=== PATIENT | female | born 1980 | race Caucasian/White ===

== ENCOUNTER → 2016-07-18 | Outpatient (CLI) | payer BC ==
[~2016-07-18] MED LIST: HYDR-4246 PO; IBUP-1547 PO; IRON1CAP3 PO; PREN1TAB77 PO
--- NOTE | 2016-07-18 12:18 | DI ---
Indication: ITS.REASON: O26.859 Spotting complicating , unspecified trimester PROCEDURE: US OB <14 WKS WITH TRANSVAG: Encounter: Initial Age by LMP is 9 weeks and 1 days. This correlates to an MILLIE of February 19, 2017. Comparison: None PROCEDURE: US OB <14 WKS WITH TRANSVAG: Technique: Transabdominal and transvaginal pelvic sonographic imaging was performed. Findings: Imaging demonstrates an intrauterine gestation. A normal appearing yolk sac is identified. No pole or embryo identified. Both ovaries were identified and appear normal. The left measures 2.7 x 3 x 2.3 cm, and the right 2.1 x 1.5 x 1.5 cm. No abnormal adnexal mass. No free fluid. Probable corpus luteum on the left. biometry: Mean sac diameter 1.78 cm: 6 weeks and 5 days. Impression: Abnormal appearing intrauterine gestation with a well-defined yolk sac but no discernible pole. Given the mean sac diameter of 1.8 cm this is suspicious for, but not diagnostic of failure. Differential considerations include spontaneous , anembryonic /blighted ovum or less likely early normal . Follow-up ultrasound exam at or after 11 days from today would be definitive for evaluation of a failed . Recommend serial beta hCG measurements and clinical follow-up. .
== END ==
LOC: IMA 10:19
PROVIDERS: ATTEND Family Medicine
DX: O26.859 Spotting complicating pregnancy, unspecified trimester (principal); R93.8 Abnormal findings on diagnostic imaging of other specified body structures
CPT/HCPCS: 36415; 84702; 86850; 86900; 86901

== ENCOUNTER → 2016-07-20 | Outpatient (CLI) | payer BC | LOC: LAB 09:36 | PROVIDERS: ATTEND Family Medicine | DX: O26.859 Spotting complicating pregnancy, unspecified trimester (principal) | CPT/HCPCS: 36415; 84702 ==

== ENCOUNTER 2017-06-08 07:43 | Inpatient (IN) ==
[2017-06-08] MEDS ORDERED: CITRIC ACID/SODIUM CITRATE 30ml PO ONE (08:23)
[2017-06-08] MEDS ORDERED: CEFAZOLIN PREMIX (MC ONLY) 2 GM/50 ML BAG IV ONE (08:23)
[2017-06-08] MEDS ORDERED: FAMOTIDINE PB 20 MG/50 ML BAG IV ONE (08:23)
[2017-06-08 09:03] VITALS: BMI 24.5
[2017-06-08] MEDS: LR 1,000 ML IV SCH ×2 (09:42→10:55)
[2017-06-08] MEDS ORDERED: OXYTOCIN BOLUS BAG 30 UNIT/500 ML ML IV SCH (10:20)
[2017-06-08] MEDS ORDERED: CALCIUM CARBONATE Chewable 500mg TABLET PO PRN (10:58)
[2017-06-08] MEDS ORDERED: ONDANSETRON 4 MG/2 ML INJECTION IVP PRN ×2 (10:58→11:15)
[2017-06-08] MEDS ORDERED: DiphenhydrAMINE 25 MG CAPSULE PO PRN (10:58)
[2017-06-08] MEDS ORDERED: HYDROCORTISONE 2.5% CREAM 30gm RECTALLY PRN (10:58)
[2017-06-08] MEDS ORDERED: ACETAMINOPHEN 500 MG TABLET PO PRN (10:58)
[2017-06-08] MEDS ORDERED: SALINE FLUSH 10ml SYRINGE IV PRN (10:58)
[2017-06-08] MEDS ORDERED: OXYTOCIN DRIP 30 UNIT/500 ML ML IV SCH (11:00)
[2017-06-08] MEDS ORDERED: NALBUPHINE 10 MG/ML INJECTION IVP PRN (11:15)
[2017-06-08] MEDS ORDERED: NALOXONE 2 MG/2 ML INJECTION PFS IVP PRN (11:15)
--- NOTE | 2017-06-08 11:15 | Anesthesia Preoperative Report ---
Anesthesia Epidural/Spinal Rec - Date and Time Date: 06/08/17 Preoperative Diagnosis: previous c/s and breech Procedure: Plan: Spinal - Vital Signs Vital Signs: Temperature 98.1 F 06/08/17 08:52 Pulse Rate 61 06/08/17 08:52 Respiratory Rate 12 06/08/17 08:52 Blood Pressure 125/75 06/08/17 08:52 Pulse Oximetry 100 06/08/17 08:52 /Para: P:1 - Medictaions & Allergies Inpatient Medications: Current Medications Acetaminophen (Tylenol) 500 - 1,000 mg PO Q4H PRN PRN Reason: Pain Hydrocodone Bitart/Acetaminophen ([place] 5/325) 1 - 2 tab PO Q4H PRN PRN Reason: Pain Calcium Carbonate (Tums) 500 mg PO O PRN PRN Reason: Dyspepsia Diphenhydramine HCl (Benadryl) 25 - 50 mg PO Q6H PRN PRN Reason: Itching Docusate Calcium (Surfak) 240 mg PO DAILY [facility] Hydrocortisone (Anusol-Hc 2.5% Cream) 1 applic RECTALLY PRN PRN PRN Reason: Hemorrhoids Lactated Ringer's (Lactated Ringers) 1,000 mls @ 150 mls/hr IV .Q6H40M [facility] Last Admin: 06/08/17 10:55 Dose: 150 mls/hr Dextrose/Lactated Ringer's (Dextrose 5%-Lactated Ringers) 1,000 mls @ 100 mls/ hr IV .Q10H [facility] Oxytocin (Pitocin Drip) 30 unit in 500 mls @ 50 mls/hr IV .Q10H [facility] Stop: 06/08/17 20:59 Ibuprofen (Motrin) 800 mg PO Q8HMC [facility] Magnesium Hydroxide (Mom) 30 ml PO HS PRN PRN Reason: Constipation Ondansetron HCl (Zofran) 4 mg IVP Q8H PRN PRN Reason: Nausea Simethicone (Mylicon) 80 mg PO [facility] MARLENY Simethicone (Mylicon) 80 mg PO [facility] PRN PRN Reason: Gas Sodium Chloride (Iv Flush) 10 - 80 ml IV PRN PRN PRN Reason: Flushing Allergies/Adverse Reactions: Allergies Allergy/AdvReac Type Severity Reaction Status Date / Time lactose Allergy Unknown Verified 08/01/12 14:42 Penicillins Allergy Unknown Verified 04/24/17 14:44 - Home Medications Home Medications: Home Medications Medication Instructions Recorded Confirmed Type Vit No.130/Iron/Folic 1 tab PO DAILY #0 tab 06/17/15 History [ Tablet] Calcium Carbonate [Calcium] 1 tab PO DAILY 05/17/17 History - Medical History Respiratory: Reports: Asthma (PRN inhaler) - Surgical History Reproductive Surgery/Treatment: Reports: Section Anesthesia Reactions: None Hx Family Anesthesia Reaction: No History of Motion Sickness: No - Social History Smoking Status: Never smoker Second Hand Exposure: No Substance Use Type: does not use Alcohol Intake Frequency: does not drink Hx Chewing Tobacco Use: No - Pertinent Findings Lab Data: CBC and BMP 06/08/17 08:45 - Physical Exam Respiratory Exam: lungs clear, bilateral breath sounds equal Cardiovascular Exam: regular rate and rhythm - Airway Assessment Mallampati Score: II TMD: 3 Fingerbreadths Neck Extension: good Overall Assessment: no airway concerns - ASA ASA Score: 2 - Discussion Discussion: Discussed risks/options/alternatives of anesthesia and questions answered. Patient consents. Nursing pain assessment noted. Anesthesia Discussion: family member Attestation Statement: Prior to the delivery of any anesthetic medication, I examined the patient, developed the plan, obtained the patient's consent and discussed the risk and benefits of the procedure with the patient/guardian.
--- NOTE | 2017-06-08 11:21 | Operative Note ---
Operative Note - Date of Operation Date of Operation: 06/08/17 - General : 3 Para: 1 Expected Date of Delivery: 06/20/17 Estimated or Known Gestational Age (weeks): 38 Estimated or Known Gestational Age (days): 2 - Preoperative Diagnosis Other (Non-reassuring testing) - Postoperative Diagnosis other (Same, delivered) - Procedure Repeat - Surgeon Surgeon: Carrie Ernst MD - Placement Specialist OB Placement Specialist: Galian Sullivan MD - Anesthesia Anesthesia Provider: Arnoldo Hull CRNA Anesthesia Type: Spinal - Estimated Blood Loss Estimated Blood Loss:: 700 - Findings Findings: viable male, clear fluids, normal uterus, normal adenexa, David breech - APGARS : 8/9 - [place] Weight Weight (grams): 3168 - [place] Name Name: CHAVA CHAO - Indications Indications: Nonreassuring testing w/ BPP 2/8 w/ 0 points for tone, F/E or breathing, MICHAEL low at 5.4. - Description of Procedure Description of Procedure: See dictation for full details. UOP 250 ml clear urine 2g Ancef prior to procedure To RR stable at this time.
[2017-06-08] MEDS: D5LR 1,000 ML IV SCH (11:31)
[2017-06-08] MEDS: IBUPROFEN 800 MG TABLET PO SCH ×2 (12:23→21:30)
[2017-06-08] MEDS: HYDROCODONE/APAP 5mg/325mg TABLET PO PRN ×3 (13:06→21:30)
--- NOTE | 2017-06-08 14:22 | Operative Note ---
DATE OF OPERATION 06/08/2017 PREOPERATIVE DIAGNOSIS 1. 39 weeks 2 days estimated gestational age intrauterine . 2. Nonreassuring testing with biophysical profile 2/8 on the morning of the procedure. 3. Breech presentation. 4. Previous section. POSTOPERATIVE DIAGNOSIS 1. 39 weeks 2 days estimated gestational age intrauterine . 2. Nonreassuring testing with biophysical profile 2/8 on the morning of the procedure. 3. Breech presentation. 4. Previous section. 5. Delivered. OPERATION 1. Repeat low transverse section. 2. Tubal ligation by modified [place] technique. SURGEON Carrie Ernst MD RF TEST ENGINEER Galina Sullivan MD ANESTHESIA Spinal COMPLICATIONS None. EBL 700 mL URINE OUTPUT 250 mL of clear urine at the end of the procedure. INDICATIONS 36-year old G3, P1, at 38 weeks 2 days gestational age who was brought in for testing due to history of low MICHAEL during this . She does have a history of delivery of an IUGR baby previously. testing this morning showed a 2/8 on biophysical profile with 2 points being given for an MICHAEL of 5.4 , 0 points being given for each of the tone, flexion, extension and breathing, so the decision was made to proceed with delivery today. FINDINGS Male infant in audra breech presentation. Clear fluid. Dr. Nunez was present at delivery. Apgars were 8/9, weight 3168 grams. Normal uterus, tubes and ovaries. DESCRIPTION OF PROCEDURE After verbal and written informed consent was given, the patient was taken to the operating room where spinal anesthesia was administered and found to be adequate. She was prepped and draped in the usual sterile fashion and placed in the dorsal supine position with a left lateral tilt. Pfannenstiel skin incision was then made using a scalpel and carried through to the underlying layer of fascia. The fascia was then incised in the midline and the incision was extended laterally using Garner scissors. The superior aspect of the fascial incision was then grasped with Joan clamps x2, elevated, and the underlying rectus muscles were dissected off bluntly and sharply. Attention was then turned to the inferior aspect of the incision which in a similar fashion was grasped with Joan clamps x2, tented up and the underlying rectus muscles were dissected off bluntly and sharply. The rectus muscles were then in the midline and the peritoneum was identified, tented up and entered sharply using Metzenbaum scissors. Peritoneal incision was then extended superiorly and inferiorly with good visualization of the bladder. The bladder blade was then inserted and the vesicouterine peritoneum was identified, grasped with pick -ups and entered sharply using Metzenbaum scissors. Incision was then extended laterally and the bladder flap was created digitally. Bladder blade was then reinserted and the lower uterine segment was incised in a transverse fashion with a scalpel. Uterine incision was then extended laterally using manual traction. The bladder blade was then removed and the hips of the were elevated up out of the pelvis and brought out through the incision without difficulty. The baby was then delivered down just past the level of the umbilicus at which point both of the feet did deliver through the incision as well. The anterior arm was then brought across the chest and out through the incision after which the posterior arm was brought across the chest and out through the incision. The head was then delivered without difficulty while keeping the head and neck in an anteriorly flexed position with the chin to the chest of the baby at all times. Baby's nose and mouth were suctioned and the cord was clamped and cut. He was immediately vigorous at the time of delivery. He was handed off to Dr. Nunez. Placenta then was removed spontaneously and sent for pathology. The uterus was exteriorized and cleared of all clots and debris. Uterine incision was then repaired using 0 Monocryl in a running locking fashion. After excellent hemostasis assured, attention was then turned to the procedure for the tubal ligation. Tubal ligation performed by modified [place] technique. The right fallopian tube and ovary were identified by following the tube from the uterus out to the fimbria. Tube was grasped at the midline with a Camacho and a 2 cm knuckle of tube was created by tying it with 2-0 chromic. 2-0 silk was then used to clamp off the proximal and distal ends of the tube. That segment of tube was then excised and sent to Pathology. The identified procedure was then performed on the left fallopian tube and cautery was used to assure good hemostasis. Attention was then turned back to the uterine incision and hemostasis was verified. At that time, the uterus was then returned to the abdomen. The gutters were cleared of all clots and debris and hemostasis was again assured. The peritoneum was then closed using 2-0 Vicryl. Fascia was then reapproximated using 0 Vicryl in a running fashion. The skin was then closed in a subcuticular stitch using 4-0 undyed Vicryl. Patient tolerated the procedure well. Sponge, lap and needle counts were correct x2. 2 grams of Ancef were given prior to the procedure and patient and baby were taken to the recovery room and are stable at the time of this dictation. FARHANA
[2017-06-08] MEDS: SIMETHICONE 80 MG CHEWABLE TABLET PO SCH ×2 (17:34→21:30)
[2017-06-09] MEDS: SIMETHICONE 80 MG CHEWABLE TABLET PO SCH ×4 (00:05→19:15)
[2017-06-09] MEDS: IBUPROFEN 800 MG TABLET PO SCH ×3 (00:12→19:14)
[2017-06-09] MEDS: D5LR 1,000 ML IV SCH (00:13)
[2017-06-09] MEDS: HYDROCODONE/APAP 5mg/325mg TABLET PO PRN ×3 (02:31→22:05)
[2017-06-09] MEDS: SIMETHICONE 80 MG CHEWABLE TABLET PO PRN ×2 (09:44→22:05)
[2017-06-09] MEDS: DOCUSATE CALCIUM 240 MG CAPSULE PO SCH (09:45)
[2017-06-09] MEDS ORDERED: FentaNYL 250 MCG/5 ML INJECTION IVP ONE (09:55)
[2017-06-09] MEDS ORDERED: MORPHINE SULFATE PF 5mg/10ml INJ (Duramorph) EPI ONE (09:55)
--- NOTE | 2017-06-09 11:27 | OB/GYN Progress Note ---
OB-PP Progress Note - General PPD1 POD:: POD1 Maternal Group B Strep: Negative Maternal blood type: A+ Maternal Rubella Status: Immune - Subjective Date: 06/09/17 Lochia: Minimal Pain: controlled Voiding: voiding Nausea or Vomiting Present: No - Objective Vital Signs: Last Vital Signs Temp 96.5 F L 06/09/17 11:20 Pulse 75 06/09/17 11:20 Resp 16 06/09/17 11:20 BP 117/71 06/09/17 11:20 Pulse Ox 98 06/09/17 11:20 General: alert and oriented Abdomen: fundus firm, non-tender Incision: dry, dressed Extremities: non-tender Edema: none Laboratory: Laboratory Results - last 24 hr 06/08/17 17:08 WBC 14.6 H RBC 3.80 L Hgb 11.7 L Hct 34.3 L MCV 90.3 MCH 30.8 MCHC 34.1 RDW Std Deviation 41.8 Plt Count 137 MPV 10.9 - Assessment Assessment: SP, Repeat C/S - Plan Plan: routine care Expected date of discharge: 06/10/17
[2017-06-10] MEDS: HYDROCODONE/APAP 5mg/325mg TABLET PO PRN (05:46)
[2017-06-10] MEDS: IBUPROFEN 800 MG TABLET PO SCH (05:46)
[2017-06-10 05:58] VITALS: RESP 16
[2017-06-10] MEDS: SIMETHICONE 80 MG CHEWABLE TABLET PO SCH (08:27)
[2017-06-10] MEDS: DOCUSATE CALCIUM 240 MG CAPSULE PO SCH (08:27)
[2017-06-10 13:13] VITALS: BP 137/77; PULSE 76; TEMP 98.6; O2SAT 99
== END 2017-06-10 13:15 | disposition home or self-care (01) | DRG 766 ==
LOC: OBOBS 07:43 → MC 07:47
PROVIDERS: ADMIT Family Medicine; ATTEND Family Medicine